=== PATIENT | female | born 1970 | race Two or more races ===

== ENCOUNTER 2019-04-26 10:15 | Day surgery (SDC) | payer MEDICAID ==
[~2019-04-26] VITALS: Ht 160 cm; Wt 66.0 kg
[2019-04-26 11:29] VITALS: BP 113/76
== END 2019-04-26 23:20 | disposition home or self-care (01) ==
LOC: OUT 10:15 → 4NOR 19:50 → OUT 23:20
PROVIDERS: ATTEND Specialist
DX: N84.0 Polyp of corpus uteri (principal); N72 Inflammatory disease of cervix uteri; Z72.89 Other problems related to lifestyle; Z79.01 Long term (current) use of anticoagulants; Z79.899 Other long term (current) drug therapy; Z98.51 Tubal ligation status; Z98.84 Bariatric surgery status; Z83.49 Family history of other endocrine, nutritional and metabolic diseases; Z82.49 Family history of ischemic heart disease and other diseases of the circulatory system
CPT/HCPCS: 36415; 58552; 71046; 80053; 85025; 85610; 85730; 86850; 86900; 86923; 88307; 93005; J0690; J1100; J2250; J2405; J2704; J2710; J3010; J7120; S2900; G0378